=== PATIENT | female | born 1955 | race Caucasian/White ===

== ENCOUNTER 2021-03-14 14:49 | Outpatient (REF) | payer MEDICARE, SELFPAY ==
--- NOTE | ~2021-03-14 | MM_ITS ---
EXAMINATION: BONE DENSITOMETRY CLINICAL INDICATION: History of osteopenia and osteoporosis, follow up. Other specified disorders of bone density and structure. Screening for osteoporosis. Postmenopausal. COMPARISON: Previous BD dated 03/04/2019 and baseline BD dated 04/24/2008. TECHNIQUE: Using a [employer] DXA System (software version: 13.1) manufactured by [employer], dual-energy x-ray absorptiometry was performed of the lumbar spine and left hip. The images are of good technical quality. Summary results are attached. FINDINGS: AP SPINE L1-L4 (excluding L3): The data of L1-L4 has been changed to exclude the L3 vertebral body, because probable degenerative changes at this level may cause overestimation of lumbar spine density. Current: BMD 1.380 g/cm2, Z-score 3.4, T-score 1.7, normal, 1.1% increase from previous, 17.2% increase from baseline (<5% change is not significant). Prior: BMD 1.365 g/cm2. Baseline: BMD 1.177 g/cm2. LEFT FEMUR, NECK: Current: BMD 0.670 g/cm2, Z-score -1.1, T-score -2.6, osteoporosis. Prior: BMD 0.543 g/cm2. Baseline: BMD 0.727 g/cm2. LEFT FEMUR, TOTAL: Current: BMD 0.750 g/cm2, Z-score -0.7, T-score -2.0, osteopenia, 34.2% increase from previous, 6.0% decrease from baseline (<5% change is not significant). Prior: BMD 0.559 g/cm2. Baseline: BMD 0.798 g/cm2. IDENTIFIED RISK FACTORS: History of fracture, (adult). Height loss. Osteoporosis. Menopause. HISTORY OF FRACTURE: Pelvis. MEDICATIONS: Fosamax. Calcium or multivitamin. Vitamin D. MM/XR DEXA axial skeleton IMPRESSION: 1. DIAGNOSIS: Osteoporosis based on the lowest T-score value of -2.6 in the femoral neck applying World Health Organization criteria. 2. 10-YEAR FRACTURE RISK PREDICTION, FRAX: Major osteoporotic fracture (clinical spine, forearm, hip or shoulder) 23.9%. Hip fracture 6.0%. 3. Treatment Recommendations: NOF guidelines recommend consideration for treatment in postmenopausal women and men age 50 and older presenting with the following: -A hip or vertebral (clinical or morphometric) fracture. -T-score less than or equal to -2.5 at the femoral neck or spine after appropriate evaluation to exclude secondary causes. -Low bone mass at the hip or spine and a 10-year fracture probability by FRAX of greater than or equal to 3% for hip fracture or greater than or equal to 20% for major osteoporotic fracture based on the [place] adapted WHO algorithm. 4. Other Recommendations: All treatment decisions require clinical judgment and consideration of individual patient factors, including patient preferences, comorbidities, previous drug use, risk factors not captured in the FRAX model (e.g. frailty, falls, vitamin D deficiency, increased bone turnover, interval significant decline in bone density) and possible under or overestimation of fracture risk by FRAX. Additional medical evaluation for secondary cause of low bone mineral density may be appropriate. FUTURE SCAN RECOMMENDATION: People with diagnosed cases of osteoporosis or at high risk for fracture should have regular bone mineral density tests. For patients eligible for Medicare, routine testing is allowed once every 2 years. The testing frequency can be increased to one year for patients who have rapidly progressing disease, those who are receiving or discontinuing medical therapy to restore bone mass, or have additional risk factors.
== END 2021-03-14 14:50 | disposition home or self-care (01) ==
LOC: HO.MAMMO 14:49
PROVIDERS: PCP Internal Medicine; Visit Provider Internal Medicine
DX: Z13.820 Encounter for screening for osteoporosis (principal); M81.0 Age-related osteoporosis without current pathological fracture; Z78.0 Asymptomatic menopausal state; Z87.81 Personal history of (healed) traumatic fracture; Z79.899 Other long term (current) drug therapy
CPT/HCPCS: 77080

== ENCOUNTER 2021-07-16 14:21 | Outpatient (REF) | payer MEDICARE, SELFPAY ==
--- NOTE | ~2021-07-16 | MR_ITS ---
EXAMINATION: MR FOREARM WITHOUT AND WITH CONTRAST, LEFT CLINICAL INFORMATION: Fall in July 2020. Fifth digit fracture. Lump along the lateral aspect of forearm. COMPARISON: None TECHNIQUE: Multisequence MR imaging of the left forearm was performed before and after the IV administration of 6.5 mL Gadavist contrast. FINDINGS: BONE: No abnormal marrow signal. No acute osseous injury. MUSCLES/TENDONS: Minimal edema within the proximal extensor digitorum muscle, which could represent a minimal muscle strain. No measurable muscle or tendon defect. No postcontrast enhancement. SOFT TISSUES: No abnormal soft tissue mass or fluid collection. No abnormal enhancement. No significant abnormality in the region of the patient's complaint. MR/MR forearm LT wo/w con IMPRESSION: 1. No soft tissue mass or fluid collection. No abnormal subcutaneous enhancement. 2. Minimal edema within the proximal extensor digitorum muscle, which could represent a minimal muscle strain. No measurable muscle or tendon defect.
[2021-07-16 14:49] LABS: Anion Gap 14 (12-20); Blood Urea Nitrogen 9 mg/dL (9-16); Calcium 9.4 mg/dL (8.4-10.2); Carbon Dioxide 26 mmol/L (22-29); Chloride 107 mmol/L (96-108); Estimated Glomerular Filt Rate > 60; Glucose Random 115 mg/dL (60-115); Potassium 4.4 mmol/L (3.3-5.1); Sodium 143 mmol/L (135-145)
== END 2021-07-16 14:22 | disposition home or self-care (01) ==
LOC: HO.MRI 14:21
PROVIDERS: PCP Internal Medicine; Visit Provider Internal Medicine
DX: Z87.898 Personal history of other specified conditions (principal)
CPT/HCPCS: 36415; 73220; 80048; A9585

== ENCOUNTER 2022-03-24 10:27 | Outpatient (REF) | payer MEDICARE, SELFPAY ==
--- NOTE | ~2022-03-24 | MR_ITS ---
EXAMINATION: MR LUMBAR SPINE WITHOUT CONTRAST CLINICAL INFORMATION: 66-year-old with chronic right-sided low back pain and right sciatica. COMPARISON: None. TECHNIQUE: MRI of the lumbar spine was obtained using routine sequences without contrast. FINDINGS: CORONAL ALIGNMENT: Mild upper lumbar dextrocurvature noted. SAGITTAL ALIGNMENT: Trace retrolisthesis noted at L1-L2, L2-L3 and L3-L4 with normal lumbar lordotic curvature and trace anterolisthesis at L4-L5. LUMBOSACRAL JUNCTION: Normal. 5 rcb-kkh-hjrqgta lumbar-type vertebral bodies. VERTEBRAL BODIES: Normal height. DISC SPACES AND ENDPLATES: Severe disc space height loss at L5-S1 with Schmorl's nodes, disc desiccation and mild spondylosis. Mild disc space height loss asymmetric to the right at L4-L5 with disc desiccation and minor spondylosis. Psyj-uc-tskqyboj disc space height loss, Schmorl's nodes, disc desiccation and mild spondylosis at L3-L4. Minimal spondylosis and disc desiccation at L2-L3 with minimal disc space narrowing and wqix-jk-aqdhchpu disc space height loss at L1-L2 with disc desiccation, Schmorl's nodes and moderate spondylosis. Moderate disc space height loss, Schmorl's nodes, disc desiccation and spondylosis noted at T11-T12. SPINAL CANAL: No abnormal developmental findings. BONE MARROW: Type I degenerative marrow signal change noted along the endplates at L1-L2, L3-L4 and L5-S1. No suspicious marrow replacing process. CONUS MEDULLARIS: Terminates at L1-L2. Morphology and signal is normal. INTRADURAL NERVE ROOTS: Within normal limits. L5-S1: Disc bulging noted with bilateral paravertebral/posterolateral disc osteophyte complexes and rtfz-ks-evllryth bilateral facet hypertrophic degenerative change without significant spinal canal stenosis. There is moderate bilateral neural foraminal stenosis. There is a 1.3 cm Tarlov cyst in the left S2-S3 neural foramen. L4-L5: Mild diffuse disc bulging is noted with a superimposed right lateral foraminal/extraforaminal disc protrusion with mild flattening of the ventral dural sac with a prominent dorsal epidural fat pad, ligamentum flavum thickening, nbwkplan-mw-jvhgsa right-sided and moderate left-sided facet arthropathy. There is cjrv-iq-ifanqgdw central spinal canal stenosis and there is moderate right and mild left subarticular recess stenosis. There is a 2.3 cm probable synovial cyst arising along the posteroinferior margin of the right facet joint. There is a 1.7 cm probable synovial cyst arising along the posteroinferior margin of the left facet joint. There is mild foraminal narrowing on the right without neural impingement. L3-L4: There is a broad-based left paramedian to subarticular/foraminal disc protrusion and a right subarticular to foraminal disc protrusion. There is flattening of the dural sac asymmetric to the left with ligamentum flavum thickening and kswshtgj-ag-aihqly bilateral facet arthropathy, with a 1.1 cm probable synovial cyst along the lateral margin of the right facet joint. There is moderate left subarticular recess stenosis without significant central spinal canal stenosis. There is mild left-sided neural foraminal stenosis without definite neural impingement. L2-L3: Mild disc bulging and small lateral disc protrusions bilaterally noted with mild right and moderate left-sided facet arthropathy without significant spinal canal stenosis. Mild left-sided neural foraminal stenosis noted without neural impingement. L1-L2: Broad-based central to left paramedian/subarticular disc protrusion with slight flattening of the left side of the dural sac without significant spinal canal stenosis. Mild facet of atrophic change noted with mild left-sided neural foraminal stenosis without neural impingement. T12-L1: No disc bulge or herniation. No facet arthrosis, canal or neural foraminal stenosis. 7 mm perineural cyst in the left neural foramen. PARASPINAL/RETROPERITONEAL: 3 cm T2 hyperintense structure in the dome of the right hepatic lobe, likely either a cyst or hemangioma. The paravertebral soft tissues are unremarkable. There are numerous bilateral renal parapelvic cysts which are not well evaluated on this exam. Cannot exclude a complex cyst on the left. Recommend abdominal ultrasound follow up. MR/MR lumbar spine wo con IMPRESSION: 1. Mild upper lumbar dextrocurvature, with mild multilevel subluxations between L1-L2 and L4-L5 inclusive as described above. 2. Multilevel DDD and spondylosis, with multilevel disc bulging and disc herniations as detailed by level above with multilevel bilateral facet arthropathy, most extensive on the right at L4-L5 with synovial cysts arising from the L4-L5 facet joints bilaterally and from the right L3-L4 facet joint laterally. The cysts do not encroach upon the canal. 3. Kwwt-it-mbdmrwug spinal canal stenosis at L4-L5, right subarticular recess stenosis at L4-L5 and left subarticular recess stenosis at L3-L4. 4. Predominantly mild and moderate degrees of neural foraminal stenosis, most apparent bilaterally at L5-S1 without definite exiting neural impingement. 5. 3 cm T2 hyperintense structure in the dome of the right hepatic lobe and question of simple parapelvic versus complex cyst left kidney. Abdominal ultrasound recommended.
== END 2022-03-24 10:28 | disposition home or self-care (01) ==
LOC: HO.MRI 10:27
PROVIDERS: Visit Provider Internal Medicine
DX: G89.29 Other chronic pain (principal); M54.41 Lumbago with sciatica, right side
CPT/HCPCS: 72148

== ENCOUNTER 2022-04-04 08:14 | Outpatient (REF) | payer MEDICARE, SELFPAY ==
--- NOTE | ~2022-04-04 | US_ITS ---
EXAMINATION: US RETROPERITONEAL LIMITED (AORTA) CLINICAL INFORMATION: Family history of AAA. COMPARISON: Ultrasound aorta 08/30/2013. TECHNIQUE: Aldana-scale, color Doppler and spectral Doppler evaluation of the abdominal aorta. FINDINGS: The aorta is atherosclerotic. The measurements of the aorta in maximum AP and transverse dimensions respectively are as follows: Proximal: 2.4 x 1.9 cm. Mid: 2.0 x 2.7 cm. Distal: 1.7 x 1.8 cm. PSV: 68.8 cm/s. The measurements of the common iliac arteries in maximum AP and TRV dimensions are as follows: Right Common Iliac Artery: 0.8 x 0.9 cm. Left Common Iliac Artery: 1.1 x 1.0 cm. US/US abdominal aortic aneurysm IMPRESSION: Negative for abdominal aortic aneurysm.
--- NOTE | ~2022-04-04 | US_ITS ---
EXAMINATION: US ABDOMEN COMPLETE CLINICAL INFORMATION: Left renal cyst. Hemangioma of liver. COMPARISON: None. TECHNIQUE: Real-time imaging of the abdominal viscera. FINDINGS: PANCREAS: Normal. ABDOMINAL AORTA: The proximal, mid, and distal segments are normal in caliber. INFERIOR VENA CAVA: Visualized portions are normal. LIVER: The liver is normal in size. The liver contour is normal. Parenchymal echogenicity is normal. There is no intrahepatic biliary duct dilatation seen. There is a cluster of cysts in the right hepatic lobe measuring 3.4 x 1.7 x 2.7 cm. GALLBLADDER: Normal. The gallbladder is physiologically distended without evidence of stones, sludge, polyps, wall thickening or pericholecystic fluid. COMMON BILE DUCT: Normal in caliber measuring 0.3 cm in diameter. RIGHT KIDNEY: There is anechoic cyst in the midpole measuring 2.1 x 3.2 x 2.1 cm. No hydronephrosis or renal calculi. The kidney measures 10.0 cm in maximum dimension. LEFT KIDNEY: There is anechoic cyst in the lower pole measuring 1.5 x 1.4 x 1.2 cm. In addition there are multiple peripelvic cysts. No hydronephrosis or renal calculi. The kidney measures 9.3 cm in maximum dimension. SPLEEN: Normal. The spleen measures 8.0 cm in maximum dimension. FREE FLUID: None. US/US abdomen complete IMPRESSION: Bilateral renal cysts. No echogenic renal calculi or hydronephrosis. Several clustered right hepatic cysts. The rest of the abdominal ultrasound is unremarkable.
== END 2022-04-04 08:15 | disposition home or self-care (01) ==
LOC: HO.US 08:14
PROVIDERS: PCP Internal Medicine; Visit Provider Internal Medicine
DX: D18.03 Hemangioma of intra-abdominal structures (principal); N28.1 Cyst of kidney, acquired; Z82.49 Family history of ischemic heart disease and other diseases of the circulatory system
CPT/HCPCS: 76700; 76706

== ENCOUNTER 2023-04-22 09:04 | Outpatient (AMB) | payer MEDICARE, SELFPAY ==
--- NOTE | 2023-04-22 09:05 | MHC.OFFVIS ---
Intake Vital Signs 04/22/23 09:07 04/22/23 09:13 Height 5 ft 2.5 in Weight 134 lb 7.712 oz BMI 24.2 BP 184/93 H 185/88 H Blood Pressure Location Lt brachial Lt brachial Position Sitting Sitting Pulse 84 Intake Visit Reasons: HX of colon polyps Intake Note: Edgard Moyer presents in the office as a new patient. Hx of Colon Polyps. CC: She states that she is due for a colonoscopy. She does have concerns that she has bloating and constipation. No blood when she goes to the bathroom. Allergies Darvocet A500 Allergy (Unknown, Uncoded 04/22/23 09:09) lethargy serzone Allergy (Unknown, Uncoded 04/22/23 09:09) nausea HPI HPI Comments History of Present Illness Details 67 year old female presenting to the office for discussion of colon cancer screening. Patient is at average risk of colon cancer due to no family history of colon cancer or advanced colon polyps in first degree relatives. Patient does not have any other gastrointestinal symptoms to include abdominal pain, nausea, vomiting, diarrhea, blood in stool, weight loss. Labs not available however pt reports no anemia on blood work done through PCP last August. Last colo 2016 (Dr Romero): benign rectal mucosa with chronic inflammation and fibrosis. PFSH Surgical History Hx of colonoscopy Hx of lumpectomy Social History Household Members: Spouse Alcohol intake: current Alcohol intake frequency: a few times a month Patient Tobacco Use Status: Never used Tobacco Use of substances other than those prescribed or required for medical reasons: No Review of Systems Const All systems reviewed & are unremarkable except as noted in HPI and below Physical Exam Vital Signs: Last Vital Signs Pulse 84 04/22/23 09:07 BP 185/88 H 04/22/23 09:13 BMI result Body Mass Index 24.2 Gen appear: NAD, well nourished HEENT: no icterus, no cervical lymphadenopathy Chest: clear to auscultation CVS: Regular S1/S2 Abd: soft, nontender, nondistended Ext: no peripheral edema Neuro: A/Ox3, noted to move all extremities spontaneously Assessment & Plan Assessment & Plan (1) Personal history of colonic polyps: Code(s): Z86.010 - Personal history of colonic polyps (2) Constipation: Code(s): K59.00 - Constipation, unspecified Plan 1. Personal hx of polyps: A repeat colonoscopy will be set up, no adenomas on most recent colo however has had tubular adenomas in the past including 2011. In terms of chronic inflammation noted on histology - unclear clinical significance in the absence of any correlating sx such as abd pain, diarrhea or bleeding. Plan: - Sutab prep Rxed as per pt preference. Coupon handed. - Instructions reviewed and handout provided as well. - Pt is aware that this will be booked on an elective basis. 2. CIC: First step would be to increase hydration and fiber intake. Can take Miralax PRN Follow up after colo as needed. Medications: New sod sulf-pot chloride-mag sulf 1.479-0.188- 0.225 gram (Sutab) PO PER PKG DIR 1 kit 0RF Coding Level of Care Code New Pt Level 4 (56500) Diagnoses Personal history of colonic polyps Z86.010 Constipation K59.00
[2023-04-22 09:07] VITALS: BP 184/93; PULSE 84; BMI 24.2
[2023-04-22 09:13] VITALS: BP 185/88
== END 2023-04-22 10:27 | disposition home or self-care (01) ==
PROVIDERS: Visit Provider Internal Medicine
DX: Z01.818 Encounter for other preprocedural examination (principal); Z12.11 Encounter for screening for malignant neoplasm of colon; Z86.010 Personal history of colon polyps; K59.04 Chronic idiopathic constipation
CPT/HCPCS: 99204

== ENCOUNTER → 2023-04-22 09:04 | Outpatient (BNVA) | payer MEDICARE, SELFPAY | PROVIDERS: Visit Provider Internal Medicine | DX: K59.00 Constipation, unspecified (principal); Z86.010 Personal history of colon polyps | CPT/HCPCS: 99202 ==

== ENCOUNTER 2024-02-18 09:14 | Day surgery (SDC) | payer MEDICARE, SELFPAY ==
[2024-02-16 14:30] VITALS: BMI 24.1
--- NOTE | 2024-02-17 09:38 | HO.ANESPROP2 ---
Documented by User: Milly Granado NP 02/17/24 09:38 HPI - Anesthesia Eval Consult details Narrative: 68yo F for Colonoscopy PMFSH Active Problems Active Problems: All Active Problems Constipation (Acute) Personal history of colonic polyps (Acute) Past Medical History Medical History (Updated 02/18/24 @ 09:31 by Alyssia Espitia, RN) Fibromyalgia Surgical History Surgical History (Updated 02/16/24 @ 14:29 by Viola Peñaloza RN) Hx of lumpectomy Hx of colonoscopy Social History Social History Household Members: Spouse Alcohol intake: current Alcohol intake frequency: a few times a month Patient Tobacco Use Status: Former Tobacco user Use of substances other than those prescribed or required for medical reasons: No Are you DNR?: No Advance Directives: No Advance Directives Information Provided: Yes Meds Allergies Allergy/AdvReac Type Severity Reaction Status Date / Time nefazodone [From Serzone] Allergy Intermediate Nausea Verified 02/16/24 14:28 propoxyphene Allergy Intermediate lethargy Verified 02/16/24 14:25 [From Darvocet-N 100] Home Medications ?Medication ?Instructions ?Recorded ?Confirmed ?Last Taken ?Type pregabalin 100 mg capsule (Lyrica) 100 mg PO BID 02/18/24 02/18/24 Unknown History Exam Height,Weight and Vital Signs: Height 5 ft 2.5 in Weight 60.781 kg Assessment and Plan Assessment Anesthesia Assessment: Chart Reviewed Documented by User: Will Melara MD 02/18/24 10:34 PMFSH Past Medical History Medical History (Updated 02/18/24 @ 09:31 by Alyssia Espitia, JESU) Fibromyalgia Family History Family history of problems with anesthesia: No Surgical History Surgical History (Updated 02/16/24 @ 14:29 by Viola Peñaloza RN) Hx of lumpectomy Hx of colonoscopy History of Problems with Anesthesia: No Social History Social History Household Members: Spouse Alcohol intake: current Alcohol intake frequency: a few times a month Patient Tobacco Use Status: Former Tobacco user Use of substances other than those prescribed or required for medical reasons: No Are you DNR?: No Advance Directives: No Advance Directives Information Provided: Yes Meds Allergies Allergy/AdvReac Type Severity Reaction Status Date / Time nefazodone [From Serzone] Allergy Intermediate Nausea Verified 02/16/24 14:28 propoxyphene Allergy Intermediate lethargy Verified 02/16/24 14:25 [From Darvocet-N 100] Home Medications ?Medication ?Instructions ?Recorded ?Confirmed ?Last Taken ?Type pregabalin 100 mg capsule (Lyrica) 100 mg PO BID 02/18/24 02/18/24 Unknown History Exam Airway Mallampati Class: II TM Dist: >3cm Neck ROM: Full Denture: Upper and Lower Heart: ok Lungs: ok Other: left her dentures in Assessment and Plan Assessment Anesthesia Assessment: Anesthesia Plan Discussed Final Anesthetic Review Family History of Problems with Anesthesia: No History of Problems with Anesthesia: No NPO: Yes ASA Class: III Final Preanesthetic Review: No Changes in Pt Med Stat, Meds/Allgs Chart Reviewed, Consent Obtained/Reviewed and Anes Risks/Benef Reviewed Patient Risk: Intermediate Procedure Risk: Low Anesthetic Plan Anesthetic Plan: MAC: and Agree w/ Assess. and Plan Disposition: Standard PACU
[2024-02-18 09:32] VITALS: BMI 23.9
[2024-02-18 09:45] VITALS: BP 150/91; PULSE 102; RESP 16; TEMP 36.8; O2SAT 98
[2024-02-18] MEDS: Lactated Ringers 1,000 ML 100 ML IVCONT (09:59)
--- NOTE | 2024-02-18 10:28 | P.OPN-COLO_ITS ---
Colonoscopy Operative Note Operative Note Date of Service: 02/18/24 Narrative: Procedure: Colonoscopy Indication: Personal history of polyps Endoscopist: Sue Calderon MD Anesthesia Provider: Dr Will Melara Anesthesia type: MAC Instrument: Olympus [id number]-H190L Consent: Indication, risks vs benefits, and alternatives were discussed with the patient who gave written informed consent to proceed. EKG, pulse, pulse oximetry and blood pressure were monitored throughout the procedure. Please see anesthesia flowsheet. Procedure: The patient was brought to the procedure room and placed in the left lateral decubitus position. IV medications were administered by the anesthesia provider in attendance. A digital rectal exam was performed which was abnormal due to finding of hemorrhoids. A distal attachment cap was affixed to the tip of the colonoscope which was then inserted through the anus and advanced through the colon to the cecum at 75 cm,and terminal ileum. Appendiceal orifice and ileocecal valve were identified. Mucosa was carefully examined under high definition white light as the instrument was slowly withdrawn in a retrograde panoramic fashion. Retroflexion was performed in rectum. The procedure was not difficult. There were no immediate obvious complications. The quality of the prep was BBPS: 2+2+3 = adequate Withdrawal time 8 minutes. Limitations: No limitations. Findings: Mucosa: Normal to cecum and terminal ileum. Protruding lesions: * Large internal hemorrhoids without stigmata of recent bleeding. Excavated lesions: * Moderate diverticulosis of left sided colon. Impression: 1. Normal colon and terminal ileum mucosa 2. Diverticulosis 3. External and internal hemorrhoids Recommendations: - Repeat colonoscopy for asymptomatic colorectal cancer screening in 10 years if patient in good health.
--- NOTE | 2024-02-18 10:28 | MHC.SHP ---
Pre-Procedural Eval Section A - 24 Hr Update-Section A only Date of Service: 02/18/24 Section B - Complete if H&P > 30 days Chief Complaint: Personal history of colonic polyps Details of Present Illness: Hx of colonoscopy Hx of lumpectomy Social History Household Members: Spouse Alcohol intake: current Alcohol intake frequency: a few times a month Patient Tobacco Use Status: Never used Tobacco Use of substances other than those prescribed or required for medical reasons: No Present Medications: see Short Stay Collaborative assessment Allergies: Allergies Allergy/AdvReac Type Severity Reaction Status Date / Time nefazodone [From Serzone] Allergy Intermediate Nausea Verified 02/16/24 14:28 propoxyphene Allergy Intermediate lethargy Verified 02/16/24 14:25 [From Darvocet-N 100] Review of Systems Review of Systems Comment: Ten point ROS negative Exam Exam Comment: Gen appear: No acute distress HEENT: no icterus Chest: No overt resp distress Abd: soft, nontender, nondistended Psych: Stable affect, answering questions appropriately Neuro: A/Ox3 noted to move all extremities spontaneously Ext: no peripheral edema Plan Diagnosis/Plan: Unchanged I have reviewed the history and physical and performed a pertinent physical examination on my patient. No changes have occurred unless specified. Time Spent With Patient Time: Total time managing care of this patient today ____ minutes.
[2024-02-18 10:59] VITALS: BP 103/74; PULSE 82; RESP 16; TEMP 36.3; O2SAT 96
[2024-02-18 11:13] VITALS: BP 128/83; PULSE 84; RESP 16; O2SAT 98
[2024-02-18 11:26] VITALS: BP 139/76; PULSE 72; RESP 16; TEMP 36.6; O2SAT 99
== END 2024-02-18 12:00 | disposition home or self-care (01) ==
PROVIDERS: PCP Internal Medicine; Visit Provider Internal Medicine
PROC: 0DJD8ZZ Inspection of Lower Intestinal Tract, Via Natural or Artificial Opening Endoscopic (ICD-10-PCS; CPT 45378; principal; 2024-02-18 11:40)
DX: Z12.11 Encounter for screening for malignant neoplasm of colon (principal); K57.30 Diverticulosis of large intestine without perforation or abscess without bleeding; K64.8 Other hemorrhoids; K64.4 Residual hemorrhoidal skin tags; K59.00 Constipation, unspecified; Z86.010 Personal history of colon polyps; Z87.891 Personal history of nicotine dependence
CPT/HCPCS: G0105; J2704

== ENCOUNTER → 2024-02-18 09:14 | Outpatient (BNV) | payer MEDICARE, SELFPAY | PROVIDERS: PCP Internal Medicine; Visit Provider Internal Medicine | DX: Z12.11 Encounter for screening for malignant neoplasm of colon (principal); Z86.010 Personal history of colon polyps; K57.30 Diverticulosis of large intestine without perforation or abscess without bleeding; K64.8 Other hemorrhoids | CPT/HCPCS: G0105 ==

== ENCOUNTER 2024-02-29 11:33 | Outpatient (AMB) | payer MEDICARE, SELFPAY ==
--- NOTE | 2024-02-29 11:36 | A.OFFVIS_ITS ---
Vital Signs 02/29/24 11:40 Height 5 ft 5.5 in Weight 138 lb 14.259 oz BMI 22.8 BP 119/73 Blood Pressure Location Lt brachial Position Sitting Pulse 68 Intake Visit Reasons: s/p colon Intake Note: Edgard presents in the office as a follow up colonoscopy. CC: Here for results - states that she has bee gaining weight and now sure why. She states that she has to have BMs often - but there is days wehre she does not have any BM. Allergies nefazodone [From Serzone] Allergy (Intermediate, Verified 02/29/24 11:41) Nausea propoxyphene [From Darvocet-N 100] Allergy (Intermediate, Verified 02/29/24 11:41) lethargy HPI Comments Details: 67 year old female presenting to the office for discussion of colon cancer screening. Patient is at average risk of colon cancer due to no family history of colon cancer or advanced colon polyps in first degree relatives. Patient does not have any other gastrointestinal symptoms to include abdominal pain, nausea, vomiting, diarrhea, blood in stool, weight loss. Labs not available however pt reports no anemia on blood work done through PCP last August. Last colo 2016 (Dr Romero): benign rectal mucosa with chronic inflammation and fibrosis. 02/18/24: 1. Normal colon and terminal ileum mucosa 2. Diverticulosis 3. External and internal hemorrhoids 02/29/24: [place] results reviewed. Pt reassured with normal colo. Main complaint today is bloating and constipation. Has a BM 1-2 times a week. Stools are small and hard pellet like. [facility] Medical History (Updated 02/18/24 @ 09:31 by Alyssia Espitia RN) Fibromyalgia Surgical History (Updated 02/16/24 @ 14:29 by Viola Peñaloza RN) Hx of lumpectomy Hx of colonoscopy Social History Household Members: Spouse Alcohol intake: current Alcohol intake frequency: a few times a month Patient Tobacco Use Status: Former Tobacco user Review of Systems Const All systems reviewed & are unremarkable except as noted in HPI and below Physical Exam Vital Signs: Last Vital Signs Pulse 68 02/29/24 11:40 BP 119/73 02/29/24 11:40 BMI result Body Mass Index 22.8 No apparent distress Nonicteric Abdomen soft, nondistended Alert and oriented x3, normal gait Assessment & Plan Assessment & Plan (1) Constipation: Code(s): K59.00 - Constipation, unspecified Category: Medical (2) Personal history of colonic polyps: Code(s): Z86.010 - Personal history of colonic polyps Category: Medical Plan 1. CIC: Reviewed that common to see worsneing constipation as we age. Recommend: - Increase fiber intake. Ok to take supplement - Increase hydration - Senna 1-2 tabs in AM before breakfast PRN - Miralax 1 capful in 8oz water daily. Can be titrated to effect. 2. Colorectal ca screening: No polyps on most recent colo. Recommend repeat in 10 years if pt still in good health. Follow up in 3 months Coding Level of Care Code Est Pt Level 4 (11171) Diagnoses Constipation K59.00 Personal history of colonic polyps Z86.010
[2024-02-29 11:40] VITALS: BP 119/73; PULSE 68; BMI 22.8
== END 2024-02-29 12:02 | disposition home or self-care (01) ==
PROVIDERS: PCP Internal Medicine; Visit Provider Internal Medicine
DX: K59.00 Constipation, unspecified (principal); Z86.010 Personal history of colon polyps
CPT/HCPCS: 99214

== ENCOUNTER → 2024-02-29 11:33 | Outpatient (BNVA) | payer MEDICARE, SELFPAY | PROVIDERS: PCP Internal Medicine; Visit Provider Internal Medicine | DX: R63.5 Abnormal weight gain (principal); K59.00 Constipation, unspecified; Z86.010 Personal history of colon polyps | CPT/HCPCS: 99212 ==